=== PATIENT | female | born 1970 | race Caucasian/White ===

== ENCOUNTER 2017-02-12 18:51 | Emergency (ER) | payer OTHER ==
[~2017-02-12] VITALS: Ht 175.3 cm; Wt 90.7 kg
[2017-02-12 19:05] VITALS: BP 128/78
[2017-02-12] MEDS ORDERED: ORPHENADRINE CITRATE 60 MG/2 ML VIAL. IM ONE (20:00)
[2017-02-12] MEDS ORDERED: KETOROLAC TROMETHAMINE 60 MG/2 ML INJ. IM ONE (20:00)
[2017-02-12] MEDS ORDERED: TRAM-29 PO (20:12)
[2017-02-12] MEDS ORDERED: METH-37 PO (20:12)
--- NOTE | 2017-02-12 20:12 | PHYS DOC ---
Past Medical History Past Medical History: No Pertinent History Past Surgical History: Tonsillectomy, Tubal ligation Smokin Pack Per Day Alcohol Use: None Drug Use: Marijuana Adult General Chief Complaint Chief Complaint: BACK PAIN OR INJURY HPI HPI Patient is a 46 year old female who presents with left shoulder and left neck pain for 1 week. She denies any injury but does a lot of bending and lifting activities at her work. She has intermittent numbness in the fingers of the left hand. The pain is exacerbated by movement of the left arm. She denies chest pain, shortness of breath, headache, dizziness, or focal weakness. She has tried taking ibuprofen and applying Aspercreme without relief of her pain. Her states that he can feel knots in the left shoulder blade when he rubs the Aspercreme on her. She does not have a PCP. Review of Systems Review of Systems Constitutional: Denies fever or chills. [] Eyes: Denies change in visual acuity, redness, or eye pain. [] HENT: Denies ear pain, nasal congestion or sore throat. [] Respiratory: Denies cough or shortness of breath. [] Cardiovascular: Denies chest pain, palpitations or edema. [] GI: Denies abdominal pain, nausea, vomiting, bloody stools or diarrhea. [] : Denies dysuria, hematuria or urinary frequency. [] Musculoskeletal: Reports left shoulder and left neck pain. Integument: Denies rash or skin lesions. [] Neurologic: Denies headache, focal weakness or dizziness. Reports intermittent numbness of the fingers of the left hand. Endocrine: Denies polyuria or polydipsia. [] Psych: Denies anxiety or depression. [] All systems reviewed and negative unless otherwise stated in the HPI. Current Medications Current Medications Current Medications Medications (Trade) Dose Ordered Sig/[facility] Start Time Stop Time Status Last Admin Dose Admin Ketorolac Tromethamine (Toradol Im) 60 mg 1X ONCE 02/12/17 20:00 02/12/17 20:01 DC Orphenadrine Citrate (Norflex) 60 mg 1X ONCE 02/12/17 20:00 02/12/17 20:01 DC Allergies Allergies Allergies Coded Allergies Type Severity Reaction Last Updated Verified No Known Drug Allergies 11/28/14 No Physical Exam Physical Exam Constitutional: Well developed, well nourished, no acute distress, non-toxic appearance. [] HENT: Normocephalic, atraumatic, bilateral external ears normal, oropharynx moist, no oral exudates, nose normal. [] Eyes: PERRLA, EOMI, conjunctiva normal, no discharge. [] Neck: Normal range of motion, no midline tenderness, supple, no stridor. Left paraspinal muscle tenderness and spasm. Cardiovascular:Heart rate regular rhythm, no murmur [] Lungs & Thorax: Bilateral breath sounds clear to auscultation [] Skin: Warm, dry, no erythema, no rash. [] Back: No midline tenderness, no CVA tenderness. There is tenderness over the left rhomboids and trapezius with muscle spasm. Extremities: No tenderness of the left upper extremity, no cyanosis, no clubbing , ROM intact, no edema. Neurovascularly intact distally. Neurologic: Alert and oriented X 3, normal motor function, normal sensory function, no focal deficits noted. [] Psychologic: Affect normal, judgement normal, mood normal. [] Current Patient Data Vital Signs Vital Signs Date Time Temp Pulse Resp B/P Pulse Ox O2 Delivery O2 Flow Rate FiO2 02/12/17 19:05 98.3 71 20 98 Room Air 98.3 EKG EKG [] Radiology/Procedures Radiology/Procedures [] Course & Med Decision Making Course & Med Decision Making Pertinent Labs and Imaging studies reviewed. (See chart for details) [] Dragon Disclaimer Dragon Disclaimer This electronic medical record was generated, in whole or in part, using a voice recognition dictation system. Departure Departure Impression: Primary Impression: Shoulder pain Disposition: HOME, SELF-CARE Condition: STABLE Referrals: FRANCISCA MELO II, MD Patient Instructions: Shoulder Pain, [id number] Additional Instructions: Your pain appears to be due to tight muscles in the neck and shoulder. Please take the prescribed medications as directed. Do not drive or operate heavy machinery while taking these medications. To help with your pain, apply heat, practice gentle stretching and massage, and avoid bending or lifting activities. Please follow up with a primary care provider if your pain continues. Return to the emergency department if you have chest pain, shortness of breath, weakness, or other new or concerning symptoms. Scripts Tramadol Hcl (Ultram)50 Mg [id number] Mg PO Q6H PRN PAIN #20 TAB Prov:MIS CEDILLO 02/12/17 Methocarbamol (Robaxin)500 Mg [id number] Mg PO QID #20 TAB Prov:MIS CEDILLO 02/12/17 Problem Qualifiers Primary Impression: Shoulder pain Laterality: left Chronicity: acute Qualified Code: M25.512 - Pain in left shoulder MIS CEDILLO Feb 12, 2017 20:12
== END 2017-02-12 20:23 | disposition home or self-care (01) ==
LOC: ER 18:51
DX: M25.512 Pain in left shoulder (principal); F17.200 Nicotine dependence, unspecified, uncomplicated; F12.10 Cannabis abuse, uncomplicated
CPT/HCPCS: 96372; 99284; J1885; J2360

== ENCOUNTER 2017-11-02 08:49 | Emergency (ER) | payer SELFPAY, OTHER ==
[2017-11-02] MEDS: diazePAM 5 MG TABLET PO (09:33)
[2017-11-02] MEDS: KETOROLAC 60 MG/2 ML INJ. IM (09:33)
== END 2017-11-02 10:21 | disposition home or self-care (01) ==
LOC: ER 08:49
DX: S46.002A Unspecified injury of muscle(s) and tendon(s) of the rotator cuff of left shoulder, initial encounter (principal); F12.10 Cannabis abuse, uncomplicated; F17.210 Nicotine dependence, cigarettes, uncomplicated; X58.XXXA Exposure to other specified factors, initial encounter; Y93.89 Activity, other specified; Y92.89 Other specified places as the place of occurrence of the external cause; Y99.8 Other external cause status
CPT/HCPCS: 93005; 96372; 99283-25; J1885

== ENCOUNTER 2019-11-23 21:53 | Emergency (ER) | payer SELFPAY ==
[~2019-11-23] VITALS: Ht 175.3 cm; Wt 100.0 kg
[~2019-11-23 21:53] MED LIST: DIAZ5TAB PO; METH-37 PO; TRAM-48 PO; TRAM1TAB4 PO
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
[2019-11-23] MEDS ORDERED: HYDR-3164 PO (22:39)
--- NOTE | 2019-11-23 22:46 | RAD ---
WRIST 3V RIGHT, ELBOW RIGHT 2V History: Fall. Pain. Technique: 3 views right wrist and 2 views right elbow. Comparison: None. Findings: Right elbow: Posterior elbow soft tissue swelling. No significant elbow joint effusion. Normal alignment. No fracture. Right wrist: Comminuted intra-articular distal radial fracture with dorsal angulation. Impression: 1. Acute comminuted intra-articular distal radial fracture. Electronically signed by: Kyle Red DO (11/23/2019 10:43 PM) [facility]
[2019-11-23] MEDS ORDERED: KETOROLAC 60 MG/2 ML VIAL. ONE (22:47)
[2019-11-23 22:58] VITALS: BP 114/80
[2019-11-23] MEDS ORDERED: KETOROLAC 60 MG/2 ML VIAL. IM ONE (23:15)
[2019-11-23] MEDS ORDERED: HYDROcodone/APAP 7.5/325MG 1 TAB TABLET PO ONE (23:15)
== END 2019-11-23 22:58 | disposition home or self-care (01) ==
LOC: ER 21:53
DX: S52.591A Other fractures of lower end of right radius, initial encounter for closed fracture (principal); M25.521 Pain in right elbow; W01.0XXA Fall on same level from slipping, tripping and stumbling without subsequent striking against object, initial encounter; Y93.89 Activity, other specified; Y92.89 Other specified places as the place of occurrence of the external cause; Y99.8 Other external cause status
CPT/HCPCS: 29125; 73070; 73110; 99284

== ENCOUNTER 2021-04-03 10:36 | Emergency (ER) | payer OTHER ==
[~2021-04-03] VITALS: Ht 175.3 cm; Wt 100.0 kg
[~2021-04-03 10:36] MED LIST changes: +HYDR-3164 PO
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
[2021-04-03] MEDS ORDERED: ONDANSETRON PF 4 MG/2 ML VIAL. IVP ONE (11:45)
[2021-04-03] MEDS ORDERED: IV NORMAL SALINE 1000ML BAG 1,000 ML IV ONE (11:45)
[2021-04-03] MEDS ORDERED: FAMOTIDINE 20 MG/2 ML VIAL IVP ONE (11:45)
[2021-04-03 11:47] LABS: BASO # 0.1 x10^3/uL (0.0-0.2); BASO % 1 % (0-3); EOS % 0 % (0-3); HEMATOCRIT 38.6 % (36.0-47.0); HEMOGLOBIN 13.3 g/dL (12.0-15.5); LYMPH # 0.8 x10^3/uL (1.0-4.8); LYMPH % 10 % (24-48); MEAN CORPUSCULAR HEMOGLOBIN 28 pg (25-35); MEAN CORPUSCULAR HGB CONC 35 g/dL (31-37); MEAN CORPUSCULAR VOLUME 82 fL (79-100); MONO # 0.2 x10^3/uL (0.0-1.1); MONO % 2 % (0-9); NEUT % 87 % (31-73); PLATELET COUNT 300 x10^3/uL (140-400); RED BLOOD COUNT 4.69 x10^6/uL (3.50-5.40); RED CELL DISTRIBUTION WIDTH 14.2 % (11.5-14.5); WHITE BLOOD COUNT 8.1 x10^3/uL (4.0-11.0)
[2021-04-03 11:49] LABS: BILIRUBIN,URINE SMALL (NEG); CLARITY,URINE CLEAR; COLOR,URINE AMBER; NITRITE,URINE NEGATIVE (NEG); PROTEIN,URINE NEGATIVE (NEG-TRACE)
[2021-04-03 11:50] LABS: BARBITURATES NEG (NEG); BENZODIAZEPINES NEG (NEG); CANNABINOIDS POS (NEG); COCAINE NEG (NEG); METHADONE NEG (NEG); OPIATES NEG (NEG); PHENCYCLIDINE NEG (NEG)
[2021-04-03 11:51] LABS: AMPHETAMINE/METHAMPHETAMINE NEG (NEG)
[2021-04-03 11:53] LABS: CALCIUM 9.3 mg/dL (8.5-10.1); CREATININE 0.8 mg/dL (0.6-1.0); GFR 75.3; POTASSIUM 3.4 mmol/L (3.5-5.1)
[2021-04-03 11:59] LABS: ALBUMIN 3.7 g/dL (3.4-5.0); MAGNESIUM 1.5 mg/dL (1.8-2.4); TOTAL BILIRUBIN 0.4 mg/dL (0.2-1.0); TOTAL PROTEIN 7.4 g/dL (6.4-8.2)
[2021-04-03 12:04] LABS: RBC,URINE OCC /HPF (0-2); WBC,URINE 0 /HPF (0-4)
[2021-04-03 12:05] LABS: BACTERIA,URINE 0 /HPF (0-FEW)
--- NOTE | 2021-04-03 12:52 | RAD ---
ACUTE ABDOMEN SERIES History: Recent rib fracture and pneumonia. Constipation. Comparison: CTA chest, abdomen, and pelvis 11/28/2014. Findings: Frontal chest and supine and upright views of the abdomen. Cardiomediastinal silhouette is normal. There is no pleural effusion or pneumothorax. The lungs are clear. No pneumoperitoneum is identified. No dilated air-filled loops of bowel are seen. There is scattered stool in the colon. There are multiple surgical clips in the pelvis. Bowel gas pattern is nonobstruct gina. No obvious organomegaly. Degenerative endplate spurring of the thoracolumbar spine. IMPRESSION: 1. No acute cardiopulmonary process. 2. Nonobstructive bowel gas pattern. Electronically signed by: Denis Tran MD (04/03/2021 12:49 PM) [id number]
[2021-04-03] MEDS ORDERED: ONDA4TAB12 PO (12:59)
[2021-04-03] MEDS ORDERED: POLY119P4 PO (12:59)
[2021-04-03] MEDS ORDERED: NICO1PAT21 TP (12:59)
[2021-04-03] MEDS ORDERED: BISACODYL 5 MG TABLET.DR. PO STA (13:00)
[2021-04-03] MEDS ORDERED: MAGNESIUM CITRATE 296 ML SOLUTION. PO ONE (13:00)
[2021-04-03 13:12] VITALS: BP 160/86
[2021-04-03 13:50] LABS: % LYMPHS 14 % (24-48); % MONOS 3 % (0-10); % SEGS 83 % (35-66); PLT ESTIMATE ADEQUATE (ADEQUATE)
== END 2021-04-03 13:25 | disposition home or self-care (01) ==
LOC: ER 10:36
DX: R11.2 Nausea with vomiting, unspecified (principal); K59.03 Drug induced constipation; F12.90 Cannabis use, unspecified, uncomplicated; F17.200 Nicotine dependence, unspecified, uncomplicated; Z90.710 Acquired absence of both cervix and uterus
CPT/HCPCS: 36415; 74022; 80053; 80307; 81001; 83690; 83735; 85007; 85025; 96361; 96374; 96375; 99285; G0480; J2405; J3490; J7030

== ENCOUNTER 2022-01-24 10:13 | Emergency (ER) | payer OTHER ==
[~2022-01-24] VITALS: Ht 175.3 cm; Wt 100.0 kg
[~2022-01-24 10:13] MED LIST changes: +NICO1PAT21 TP; +ONDA4TAB12 PO; +POLY119P4 PO
[2022-01-24] MEDS ORDERED: CYCLOBENZAPRINE 10 MG TABLET. PO ONE (10:45)
[2022-01-24] MEDS ORDERED: HYDROcodone/APAP 5/325MG 1 TAB TABLET PO ONE (10:45)
[2022-01-24 11:13] LABS: BACTERIA,URINE 0 /HPF (0-FEW); RBC,URINE 0 /HPF (0-2); WBC,URINE 0 /HPF (0-4)
--- NOTE | 2022-01-24 11:13 | PHYS DOC ---
Past Medical History Past Medical History: No Pertinent History Past Surgical History: No Surgical History Smoking Status: Current Every Day Smoker Alcohol Use: None Drug Use: Marijuana General Adult EDM: Chief Complaint: BACK PAIN - NO INJURY HPI: HPI: Patient is a 51 year old female who presents with left flank aching nonradiating pain that started 2 days ago and states it hurts with breathing.. She states that it does hurt more with movement. She denies urinary symptoms, chest pain, fever, abdominal pain, nausea, vomiting, diarrhea, vision change, syncope, dizziness, focal weakness. She is a smoker and she has had cervical cancer. Rates her pain a 10 out of 10 at this time. She has not taken any medication. She did try icy hot yesterday and states it helped slightly. Review of Systems: Review of Systems: Constitutional: Denies fever or chills. [] Eyes: Denies change in visual acuity. [] HENT: Denies nasal congestion or sore throat. [] Respiratory: Denies cough or + hurts to breathe , +shortness of breath. [] Cardiovascular: Denies chest pain or edema. [] GI: Denies abdominal pain, nausea, vomiting, bloody stools or diarrhea. [] : Denies dysuria. [] Musculoskeletal: + Left flank back pain or denies joint pain. [] Integument: Denies rash. [] Neurologic: Denies headache, focal weakness or sensory changes. [] Endocrine: Denies polyuria or polydipsia. [] Lymphatic: Denies swollen glands. [] Psychiatric: Denies depression or anxiety. [] Heart Score: C/O Chest Pain: No HEART Score for Chest Pain: HEART Score for Chest Pain Response (Comments) Value History Slighlty/Non-Suspicious 0 ECG Normal 0 Age >45 - < 65 1 Risk Factors 1 or 2 Risk Factors 1 Troponin < Normal Limit 0 Total 2 Risk Factors: Risk Factors: DM, Current or recent (<one month) smoker, HTN, HLP, family history of CAD, obesity. Risk Scores: Score 0 - 3: 2.5% MACE over next 6 weeks - Discharge Home Score 4 - 6: 20.3% MACE over next 6 weeks - Admit for Clinical Observation Score 7 - 10: 72.7% MACE over next 6 weeks - Early Invasive Strategies Current Medications: Current Medications Medications (Trade) Dose Ordered Sig/Arnie Start Time Stop Time Status Last Admin Dose Admin Acetaminophen/ Hydrocodone Bitart (Lortab 5/325) 1 tab 1X ONCE 01/24/22 10:45 01/24/22 10:46 DC Cyclobenzaprine HCl (Flexeril) 10 mg 1X ONCE 01/24/22 10:45 01/24/22 10:46 DC Allergies: Allergies: Allergies Coded Allergies Type Severity Reaction Last Updated Verified No Known Drug Allergies 01/24/22 No Physical Exam: PE: Constitutional: Well developed, well nourished, no acute distress, non-toxic appearance. [] HENT: Normocephalic, atraumatic, bilateral external ears normal, oropharynx moist, no oral exudates, nose normal. [] Eyes: PERRLA, EOMI, conjunctiva normal, no discharge. [] Neck: Normal range of motion, no tenderness, supple, no stridor. [] Cardiovascular:Heart rate regular rhythm, no murmur [] Lungs & Thorax: Bilateral upper breath sounds clear and lower diminished to auscultation [] Abdomen: Bowel sounds normal, soft, no tenderness, no masses, no pulsatile masses. [] Skin: Warm, dry, no erythema, no rash. [] Back: Left flank tenderness, no CVA tenderness. [] Extremities: No tenderness, no cyanosis, no clubbing, ROM intact, no edema. [] Neurologic: Alert and oriented X 3, normal motor function, normal sensory function, no focal deficits noted. [] Psychologic: Affect normal, judgement normal, mood normal. [] Current Patient Data: Vital Signs: Vital Signs Date Time Temp Pulse Resp B/P (MAP) Pulse Ox O2 Delivery O2 Flow Rate FiO2 01/24/22 10:15 98.5 87 20 124/84 (97) 96 Room Air 98.5 EKG: EK and read by Dr. Daigle is a sinus rhythm with no STEMI. Radiology/Procedures: Radiology/Procedures: [] Impression: [facility] [address] [place] [address] IMAGING REPORT Signed PATIENT: DALI OQUENDO GACCOUNT: [id number] : 1970 LOCATION: ER AGE: 51 SEX: F EXAM STATUS: REG ER ORD. PHYSICIAN: MATT ANN APRN REASON: hurts with breathing PROCEDURE: CHEST PA & LATERAL EXAMINATION: Chest radiograph. VIEWS: Frontal and lateral views of the chest COMPARISON: 11/28/2014 INDICATION:51 years, Female, hurts with breathing. FINDINGS: Normal cardiomediastinal silhouette. No focal consolidation. No pleural effusion or pneumothorax. No acute osseous process. IMPRESSION: No confluent infiltrates. Electronically signed by: Ginger Feliz DO (01/24/2022 11:11 AM) [id number] DICTATED and SIGNED BY: GINGER FELIZ DO DATE: 01/24/22 1109 Course & Med Decision Making: Course & Med Decision Making Pertinent Labs and Imaging studies reviewed. (See chart for details) See HPI. Alert and oriented x4. Ambulatory steady gait. Speaks in full clear sentences. She states pain is pretty much continuous but is more so with movement and breathing. There is tenderness to the left flank. No extremity edema. Vital signs are within normal limits. No hypoxia. Cap refill less than 2 seconds. Lungs are clear in upper lobes and diminished in lower lobes. Blood work unremarkable. Chest x-ray is clear. Seen as how this pain is more painful with movement and is reproducible and the patient is not hypoxic, no recent travel, no recent surgery, no sign of DVT, no tachycardia, no respiratory distress and EKG is normal as is D-dimer, patient will be sent home with pain medication and muscle relaxer. Patient also states that the IcyHot patch did help. Patient is given strict return precautions. [] Dragon Disclaimer: Dragmanisha Disclaimer: This electronic medical record was generated, in whole or in part, using a voice recognition dictation system. Departure Departure Impression: Primary Impression: Musculoskeletal back pain Disposition: HOME / SELF CARE / HOMELESS Condition: STABLE Referrals: HOMERO VALDIVIA APRN (PCP) Patient Instructions: Muscle Strain, Musculoskeletal Pain Additional Instructions: Follow-up with your primary care provider. Return if you start having severe shortness of breath, chest pain, dizziness. Take medication as prescribed and with food. Member these medications can make you sleepy do not drive or work or do any kind of heavy machinery while on these medications. Continue using icy hot on the area. Scripts Cyclobenzaprine Hcl (CYCLOBENZAPRINE HCL) 5 Mg Tablet 1 TAB PO TID, #30 TAB Prov: MATT ANN APRN 01/24/22 Ibuprofen (IBUPROFEN) 600 Mg Tablet 600 MG PO PRN Q6HRS PRN for INFLAMMATION, #30 TAB Prov: MATT ANN APRN 01/24/22 Hydrocodone Bit/Acetaminophen (HYDROCODONE-APAP 5-325 ) 1 Tab Tablet 1 TAB PO PRN Q6HRS PRN for PAIN, #10 TAB 0 Refills Prov: MATT ANN [employer]IC 01/24/22 MATT ANN APRN Jan 24, 2022 11:13
[2022-01-24 11:15] LABS: BASO % 0 % (0-3); EOS # 0.1 x10^3/uL (0.0-0.7); EOS % 2 % (0-3); HEMATOCRIT 42.5 % (36.0-47.0); HEMOGLOBIN 13.8 g/dL (12.0-15.5); LYMPH % 28 % (24-48); MEAN CORPUSCULAR HEMOGLOBIN 27 pg (25-35); MEAN CORPUSCULAR HGB CONC 32 g/dL (31-37); MEAN CORPUSCULAR VOLUME 84 fL (79-100); MONO # 0.6 x10^3/uL (0.0-1.1); MONO % 8 % (0-9); NEUT # 4.5 x10^3/uL (1.8-7.7); NEUT % 62 % (31-73); PLATELET COUNT 283 x10^3/uL (140-400); RED BLOOD COUNT 5.06 x10^6/uL (3.50-5.40); RED CELL DISTRIBUTION WIDTH 14.4 % (11.5-14.5); WHITE BLOOD COUNT 7.3 x10^3/uL (4.0-11.0)
[2022-01-24 11:28] LABS: CALCIUM 9.3 mg/dL (8.5-10.1); CREATININE 0.6 mg/dL (0.6-1.0); GFR 104.6
[2022-01-24 11:35] LABS: ALBUMIN 3.7 g/dL (3.4-5.0); ALBUMIN/GLOBULIN RATIO 1.1 (1.0-1.7); TOTAL BILIRUBIN 0.3 mg/dL (0.2-1.0); TOTAL PROTEIN 7.2 g/dL (6.4-8.2)
[2022-01-24] MEDS ORDERED: HYDR-2761 PO (12:00)
[2022-01-24] MEDS ORDERED: CYCL5TAB PO (12:00)
[2022-01-24] MEDS ORDERED: IBUP-1007 PO (12:00)
--- NOTE | 2022-01-24 12:06 | EKG ---
[facility] [address] [place] [address] Test Date: 2022-01-24 Test Time: 11:15:17 Pat Name: DALI OQUENDO Department: Room: Gender: F Manager Programming: : 1970 Requested By: MATT ANN Order Number: [id number] Reading MD: Carlos Her Measurements Intervals [place] Rate: 70 P: -34 [place]: 160 QRS: -19 QRSD: 86 T: 39 QT: 384 QTc: 417 Interpretive Statements SINUS RHYTHM LEFTWARD AXIS QRS(T) CONTOUR ABNORMALITY CONSIDER ANTEROSEPTAL MYOCARDIAL DAMAGE Electronically Signed On 01-25-2022 21:19:34 CDT by Carlos Her
[2022-01-24 12:50] VITALS: BP 131/83
== END 2022-01-24 12:55 | disposition home or self-care (01) ==
LOC: ER 10:13
DX: M54.9 Dorsalgia, unspecified (principal); R06.02 Shortness of breath; F17.200 Nicotine dependence, unspecified, uncomplicated
CPT/HCPCS: 36415; 71046; 80053; 81001; 84484; 85025; 85379; 93005; 99285-25